=== PATIENT | male | born 1940 | race Caucasian/White ===

== ENCOUNTER 2018-02-23 07:45 | Inpatient (IN) | payer MEDICARE ==
[2018-02-21 11:01] LABS: ALANINE AMINOTRANSFERASE 22 U/L (12-78); ALBUMIN 3.8 g/dL (3.4-5.0); ANION GAP 7 mmol/L (5-15); CALCIUM 8.5 mg/dL (8.5-10.1); CHLORIDE 109 mmol/L (98-107); CREATININE 1.22 mg/dL (0.7-1.3)
[2018-02-21 11:04] LABS: ALKALINE PHOSPHATASE 100 U/L (45-117); BILIRUBIN,TOTAL 0.6 mg/dL (0.2-1.0); TOTAL PROTEIN 7.7 g/dL (6.4-8.2)
[2018-02-21 11:11] LABS: MEAN CORPUSCULAR HEMOGLOBIN 36.5 pg (27.5-34.5); MEAN CORPUSCULAR HGB CONC 33.4 g/dL (33.2-36.2); MEAN CORPUSCULAR VOLUME 109.3 fL (81-97); MEAN PLATELET VOLUME 8.5 fL (7.4-10.4); PLATELET COUNT 312 x10^3/uL (130-400); RED BLOOD COUNT 3.24 x10^6/uL (4.38-5.82); RED CELL DISTRIBUTION WIDTH 18.6 % (9.4-14.8)
[2018-02-21 11:47] LABS: BASOPHILS # (AUTO) 0.02 x10^3/uL (0-0.1); BASOPHILS % (AUTO) 0 % (0-1); EOSINOPHILS # (AUTO) 0.24 x10^3/uL (0-0.4); EOSINOPHILS % (AUTO) 4 % (1-7); LYMPHOCYTES # (AUTO) 1.32 x10^3/uL (1-3.4); LYMPHOCYTES % (AUTO) 22 % (22-44); MD SCAN; MONOCYTES # (AUTO) 0.68 x10^3/uL (0.2-0.8); MONOCYTES % (AUTO) 12 % (2-9); NEUTROPHILS # (AUTO) 3.66 x10^3/uL (1.8-6.8); NEUTROPHILS % (AUTO) 62 % (42-75)
[~2018-02-23] VITALS: Ht 180.3 cm; Wt 80.7 kg
[~2018-02-23 07:45] MED LIST: ASPI-621 PO; CITA10TA4 PO; CYAN1TAB29 PO; FERR-46 PO; LISI1TAB3 PO; METO200T47 PO; METO25TA35 PO; MULT-257 PO; OMEP-110 PO; PRAV10TA2 PO; SPIR25TA5 PO
[2018-02-23] MEDS ORDERED: SODIUM CHLORIDE 0.9% 1,000 ML IV SCH (08:41)
[2018-02-23] MEDS ORDERED: CEFAZOLIN PMX 1GM/50ML 50 ML IVPB ONE ×2 (09:00)
[2018-02-23] MEDS ORDERED: CEFAZOLIN 1,000 MG ONE ×3 (10:19→12:12)
[2018-02-23] MEDS ORDERED: LIDOCAINE/PF 1%, 30ML ONE (10:19)
[2018-02-23] MEDS ORDERED: CEFAZOLIN PMX 1GM/50ML 0 ML ONE (10:19)
[2018-02-23] MEDS ORDERED: FENTANYL PF 100 MCG/2ML ONE (10:41)
[2018-02-23] MEDS ORDERED: PROPOFOL 50 ML ONE (10:41)
[2018-02-23] MEDS ORDERED: HOLD MEDICATION MC PRN (13:00)
[2018-02-23] MEDS ORDERED: ZOLPIDEM 5MG TABLET PO PRN (13:00)
[2018-02-23] MEDS ORDERED: ACETAMINOPHEN 325 MG TABLET PO PRN (13:00)
[2018-02-23] MEDS ORDERED: hydrALAzine 20 MG/ML, 1ML ONE (13:15)
[2018-02-23] MEDS ORDERED: hydrALAzine 20 MG/ML, 1ML IV PRN (13:30)
[2018-02-23] MEDS: CEFAZOLIN PMX 1GM/50ML 50 ML IVPB SCH ×2 (15:25→23:31)
[2018-02-23 15:29] VITALS: BP 149/74
[2018-02-23 19:25] VITALS: BP 114/58
[2018-02-23] MEDS ORDERED: PRAVASTATIN 20 MG TABLET PO SCH (21:00)
[2018-02-23] MEDS: METOPROLOL TARTRATE 25 MG TABLET PO SCH (21:46)
[2018-02-23] MEDS: SODIUM CHLORIDE FLUSH 10ML SYR IVF SCH (21:47)
[2018-02-24 00:57] VITALS: BP 118/64
[2018-02-24 07:50] VITALS: BP 120/55
[2018-02-24] MEDS: METOPROLOL TARTRATE 25 MG TABLET PO SCH (08:02)
[2018-02-24] MEDS: SODIUM CHLORIDE FLUSH 10ML SYR IVF SCH (08:04)
[2018-02-24] MEDS ORDERED: HYDROCHLOROTHIAZIDE 12.5 MG CAPSULE PO SCH (09:00)
[2018-02-24] MEDS ORDERED: CYANOCOBALAMIN 1,000 MCG TABLET PO SCH (09:00)
[2018-02-24] MEDS ORDERED: FOLIC ACID 1 MG TABLET PO SCH (09:00)
[2018-02-24] MEDS ORDERED: CITALOPRAM 10 MG TABLET PO SCH (09:00)
[2018-02-24] MEDS ORDERED: LISINOPRIL 10 MG TABLET PO SCH (09:00)
[2018-02-24] MEDS ORDERED: SPIRONOLACTONE 25 MG TABLET PO SCH (09:00)
[2018-02-25] MEDS ORDERED: ASPIRIN 81 MG TABLET EC PO SCH (09:00)
== END 2018-02-24 11:46 | disposition home or self-care (01) | DRG 226 ==
LOC: CACL 07:45 → ORIP 12:31 → 5SO 14:51 → DCLOUNGE 02-24 11:25
PROVIDERS: ADMIT Internal Medicine Cardiovascular Disease; ATTEND Internal Medicine Cardiovascular Disease
PROC: 02HK3KZ Insertion of Defibrillator Lead into Right Ventricle, Percutaneous Approach (ICD-10-PCS; 2018-02-23)
PROC: 02H63KZ Insertion of Defibrillator Lead into Right Atrium, Percutaneous Approach (ICD-10-PCS; 2018-02-23)
PROC: 0JH608Z Insertion of Defibrillator Generator into Chest Subcutaneous Tissue and Fascia, Open Approach (ICD-10-PCS; principal; 2018-02-23 10:00)
DX: I25.5 Ischemic cardiomyopathy (principal); I49.01 Ventricular fibrillation; I25.10 Atherosclerotic heart disease of native coronary artery without angina pectoris; I65.22 Occlusion and stenosis of left carotid artery; D64.9 Anemia, unspecified; N40.0 Benign prostatic hyperplasia without lower urinary tract symptoms; M10.9 Gout, unspecified; I50.9 Heart failure, unspecified; I11.0 Hypertensive heart disease with heart failure; E78.5 Hyperlipidemia, unspecified
CPT/HCPCS: 33249; 36415; 71045; 71046; 80053; 85025; 93641; C1721; C1779; C1892; C1895; G0378; J0690; J2704; J3010; J3490; J0360